=== PATIENT | female | born 1975 | race Caucasian/White ===

== ENCOUNTER 2022-06-27 10:15 | Emergency (ER) | payer BC ==
[2022-06-27] MEDS ORDERED: NA CHLORIDE 0.9% 1,000 ML ONE (11:24)
[2022-06-27 11:29] LABS: Absolute Lymphocytes (CBC) 2.9 K/uL (0.7-4.9); Hematocrit 45.8 % (36.0-45.0); Lymphocytes % 42.6 % (15.3-44.8); MCV 90.3 fL (80-100); MPV 9.5 fL (7.6-11.3); RBC Red Blood Cell Count 5.07 M/uL (3.86-4.86)
--- NOTE | 2022-06-27 11:29 | RAD REPORT ---
EXAM DESCRIPTION: CT - Head Brain Wo Cont - 06/27/2022 11:20 am CLINICAL HISTORY: Dizziness COMPARISON: None. TECHNIQUE: Computed axial tomography of the head was obtained. IV contrast was not requested. All CT scans are performed using dose optimization technique as appropriate and may include automated exposure control or mA/KV adjustment according to patient size. FINDINGS: An intracranial bleed is not seen . The ventricles are normal in caliber. No significant hypodense areas within the brain visualized No extra-axial fluid collection is noted. Empty sella turcica Fluid within the sinuses/ mastoids is not seen. IMPRESSION: No acute intracranial abnormality is seen. If patient's symptoms persist MRI of the bra in would be recommended.
--- NOTE | 2022-06-27 11:35 | RAD REPORT ---
EXAM DESCRIPTION: Misti Single View06/27/2022 11:29 am CLINICAL HISTORY: Chest pain COMPARISON: none FINDINGS: The lungs appear clear of acute infiltrate. The heart is normal size IMPRESSION: No acute abnormalities displayed
[2022-06-27 11:48] LABS: Magnesium 2.5 mg/dL (1.8-2.4); Potassium 4.5 mmol/L (3.5-5.1); Troponin High Sensitivity 4.8 pg/mL (<58.9)
[2022-06-27] MEDS ORDERED: KETOROLAC 30 MG/ML INJ ONE (12:13)
--- NOTE | 2022-06-27 12:47 | ER ---
Nurse's Notes [facility] Name: Karol Mayo Age: 47 yrs Sex: Female : 1975 Arrival Date: 06/27/2022 Time: 10:21 Bed 2 Private MD: Diagnosis: Dizziness and giddiness Presentation: 06/27 10:40 Chief complaint: Patient states: Headache and dizziness X 2-3 days. Went to options ld1 this morning - referred to ER. Pt reports left upper arm intermittent pain - blurred vision since yesterday evening at 5pm. Coronavirus screen: At this time, the client does not indicate any symptoms associated with coronavirus-19. Ebola Screen: No symptoms or risks identified at this time. Initial Sepsis Screen: Does the patient meet any 2 criteria? No. Patient's initial sepsis screen is negative. Does the patient have a suspected source of infection? No. Patient's initial sepsis screen is negative. Risk Assessment: Do you want to hurt yourself or someone else? Patient reports no desire to harm self or others. Onset of symptoms was June 27, 2022. 10:40 Method Of Arrival: Ambulatory ld1 10:40 Acuity: ANGELINE 3 ld1 Triage Assessment: 10:40 Headache History: Denies prior headaches. General: Appears in no apparent distress. ld1 comfortable, Behavior is calm, cooperative, appropriate for age. Pain: Denies pain. EENT: No signs and/or symptoms were reported regarding the EENT system. Reports blurred vision since 2 days. Neuro: Level of Consciousness is awake, alert, obeys commands, Oriented to person, place, time, situation, Reports blurred vision dizziness, headache. Cardiovascular: Capillary refill < 3 seconds Patient's skin is warm and dry. Respiratory: Airway is patent Respiratory effort is even, unlabored. GI: Abdomen is round non-distended. : No signs and/or symptoms were reported regarding the genitourinary system. Derm: No signs and/or symptoms reported regarding the dermatologic system. 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 - Social history:: Smoking status: Patient denies any tobacco usage or history of. Patient uses alcohol, occasionally. Screenin:46 Abuse screen: Denies threats or abuse. Nutritional screening: No deficits noted. vg1 Tuberculosis screening: No symptoms or risk factors identified. Fall Risk No fall in past 12 months (0 pts). No secondary diagnosis (0 pts). IV access (20 points). Ambulatory Aid- None/Bed Rest/Nurse Assist (0 pts). Gait- Normal/Bed Rest/Wheelchair (0 pts) Mental Status- Oriented to own ability (0 pts). Total Hanna Fall Scale indicates No Risk (0-24 pts). Assessment: 10:46 General: Appears in no apparent distress. uncomfortable, Behavior is calm, cooperative. vg1 Pain: Complains of pain in head. Neuro: Level of Consciousness is awake, alert, obeys commands, Oriented to person, place, time, situation, Ocean Clam Boat Captain are equal bilaterally Moves all extremities. Gait is steady, Speech is normal, Facial symmetry appears normal, Reports blurred vision dizziness, headache. Cardiovascular: Patient's skin is warm and dry. Respiratory: Airway is patent Respiratory effort is even, unlabored. GI: Abdomen is flat. : No signs and/or symptoms were reported regarding the genitourinary system. EENT: No signs and/or symptoms were reported regarding the EENT system. Derm: Skin is pink, warm \T\ dry. Musculoskeletal: Circulation, motion, and sensation intact. 11:45 Reassessment: Patient appears in no apparent distress at this time. No changes from vg1 previously documented assessment. Patient and/or family updated on plan of care and expected duration. Pain level reassessed. Patient is alert, oriented x 3, equal unlabored respirations, skin warm/dry/pink. Vital Signs: 10:40 BP 131 / 99; Pulse 86; Resp 18; Temp 97.6(O); Pulse Ox 100% on R/A; Weight 65.77 kg; ld1 Height 5 ft. 0 in. (152.40 cm); Pain 0/10; 10:46 BP 116 / 87; Pulse 80; Resp 15; Pulse Ox 100% on R/A; vg1 11:45 BP 105 / 71; Pulse 71; Resp 16; Pulse Ox 99% on R/A; vg1 13:25 BP 101 / 87; Pulse 73; Resp 14; Pulse Ox 100% on R/A; vg1 10:40 Body Mass Index 28.32 (65.77 kg, 152.40 cm) ld1 NIH Stroke Scale Scores: 10:40 NIHSS Score: 0 [facility] ED Course: 10:21 Patient arrived in ED. mr 10:40 Arm band placed on right wrist. ld1 10:42 Triage completed. ld1 10:45 Mindy Cyr FNP is PHCP. jh7 10:45 Alex Tamayo MD is Attending Physician. jh7 10:46 Michelle Melendez RN is Primary Nurse. vg1 10:46 Patient has correct armband on for positive identification. Placed in gown. Bed in low vg1 position. Call light in reach. Side rails up X 1. Adult w/ patient. Client placed on continuous cardiac and pulse oximetry monitoring. NIBP monitoring applied. 11:15 Initial lab(s) drawn, by la, sent to lab. Inserted saline lock: 20 gauge in right vg1 antecubital area, using aseptic technique. Blood collected. 11:21 CT Head Brain wo Cont In Process Unspecified. EDMS 11:31 XRAY Chest (1 view) In Process Unspecified. EDMS 13:25 No provider procedures requiring assistance completed. IV discontinued, intact, vg1 bleeding controlled, No redness/swelling at site. Pressure dressing applied. Administered Medications: 11:32 Drug: NS 0.9% 1000 ml Route: IV; Rate: 1 bolus; Site: right antecubital; vg1 13:24 Follow up: IV Status: Completed infusion; IV Intake: 1000ml vg1 12:15 Drug: Ketorolac 30 mg Route: IVP; Site: right antecubital; vg1 13:24 Follow up: Response: No adverse reaction; No change in condition vg1 13:24 Drug: Meclizine 25 mg Route: PO; vg1 13:24 Follow up: Response: Medication administered at discharge. vg1 Medication: 10:46 VIS not applicable for this client. vg1 Intake: 13:24 IV: 1000ml; Total: 1000ml. vg1 Outcome: 12:46 Discharge ordered by MD. mcfarland 13:25 Discharged to home via wheelchair, with family. vg1 13:25 Condition: good 13:25 Discharge instructions given to patient, family, Instructed on discharge instructions, follow up and referral plans. medication usage, Demonstrated understanding of instructions, follow-up care, medications, Prescriptions given X 1. 13:28 Patient left the ED. vg1 NIH Stroke Scale - NIH Stroke Score Date: 06/27/2022 Time: 10:40 Total Score = 0 1a. Level of Consciousness (LOC) - 0(Alert) 1b. Level of Consciousness (LOC) (Month \T\ Age) - 0(Both) 1c. LOC Commands (Open \T\ Closes Eyes/Cricket Coach) - 0(Both) 2. Best Gaze (Lateral Gaze Paresis) - 0(Normal) 3. Visual Field Loss - 0(No visual loss) 4. Facial Palsy - 0(Normal) 5a. Left Arm: Motor (10-second hold) - 0(No drift) 5b. Right Arm: Motor (10-second hold) - 0(No drift) 6a. Left Leg: Motor (5-second hold - always test supine) - 0(No drift) 6b. Right Leg: Motor (5-second hold - always test supine) - 0(No drift) 7. Limb Ataxia (finger/nose \T\ heel/andre - test with eyes open) - 0(Absent) 8. Sensory Loss (pinprick arms/legs/face) - 0(Normal) 9. Best Language: Aphasia (description/naming/reading) - 0(No aphasia) 10. Dysarthria (speech clarity - read or repeat words) - 0(Normal) 11. Extinction and Inattention (visual/tactile/auditory/spatial/personal) - 0(No abnormality) Initials: bruna Signatures: Dispatcher [employer] Caryn Muniz Victoria, RN RN vg1 Maliha Talley, RN RN ld1 Mindy Cyr, LABORER/KEY MAN LABORER/KEY MAN 7 Corrections: (The following items were deleted from the chart) 10:47 10:40 Chief complaint: Patient states: Headache and dizziness X 2-3 days. Went ld1 to options this morning - referred to ER. ld1 11:20 10:46 Neuro: Level of Consciousness is awake, alert, obeys commands, Oriented vg1 to person, place, time, situation, Ocean Clam Boat Captain are equal bilaterally Moves all extremities. Gait is steady, Speech is normal, Facial symmetry appears normal, vg1 11: 10:46 Inserted saline lock: 20 gauge in right antecubital area, using aseptic vg1 technique. Blood collected. vg1 11: 10:46 Initial lab(s) drawn, by me, sent to lab. vg1 vg1
--- NOTE | 2022-06-27 12:47 | EDPHYS ---
Physician Documentation [facility] Name: Karol Mayo Age: 47 yrs Sex: Female : 1975 Arrival Date: 06/27/2022 Time: 10:21 Bed 2 Private MD: ED Physician Alex Tamayo HPI: 06/27 10:40 This 47 yrs old Female presents to ER via Ambulatory with complaints of Headache, jh7 Dizziness. 10:40 The patient complains of pain to the forehead. The patient describes the headache as jh7 aching. Onset: The symptoms/episode began/occurred 3 day(s) ago. Associated signs and symptoms: Pertinent positives: dizziness, blurred vision, Pertinent negatives: altered mental status, fever, nausea, Photophobia weakness. Headache History: Denies prior headaches. 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 - Social history:: Smoking status: Patient denies any tobacco usage or history of. Patient uses alcohol, occasionally. ROS: 10:40 Constitutional: Negative for fever, chills, and weight loss, Eyes: Negative for injury, jh7 pain, redness, and discharge, ENT: Negative for injury, pain, and discharge, Neck: Negative for injury, pain, and swelling, Cardiovascular: Negative for chest pain, palpitations, and edema, Respiratory: Negative for shortness of breath, cough, wheezing, and pleuritic chest pain, Abdomen/GI: Negative for abdominal pain, nausea, vomiting, diarrhea, and constipation, Back: Negative for injury and pain, MS/Extremity: Negative for injury and deformity, Skin: Negative for injury, rash, and discoloration, Neuro: Negative for headache, weakness, numbness, tingling, and seizure. 10:40 Neuro: Positive for dizziness, headache, Negative for altered mental status, loss of consciousness, numbness, syncope, tingling, weakness. 10:40 All other systems are negative. Exam: 10:40 Constitutional: This is a well developed, well nourished patient who is awake, alert, jh7 and in no acute distress. Head/Face: Normocephalic, atraumatic. ENT: Nares patent. No nasal discharge, no septal abnormalities noted. Tympanic membranes are normal and external auditory canals are clear. Oropharynx with no redness, swelling, or masses, exudates, or evidence of obstruction, uvula midline. Mucous membranes moist. Neck: Trachea midline, no thyromegaly or masses palpated, and no cervical lymphadenopathy. Supple, full range of motion without nuchal rigidity, or vertebral point tenderness. No Meningismus. Cardiovascular: Regular rate and rhythm with a normal S1 and S2. No gallops, murmurs, or rubs. Normal PMI, no JVD. No pulse deficits. Respiratory: Lungs have equal breath sounds bilaterally, clear to auscultation and percussion. No rales, rhonchi or wheezes noted. No increased work of breathing, no retractions or nasal flaring. Abdomen/GI: Soft, non-tender, with normal bowel sounds. No distension or tympany. No guarding or rebound. No evidence of tenderness throughout. Back: No spinal tenderness. No costovertebral tenderness. Full range of motion. Skin: Warm, dry with normal turgor. Normal color with no rashes, no lesions, and no evidence of cellulitis. MS/ Extremity: Pulses equal, no cyanosis. Neurovascular intact. Full, normal range of motion. 10:40 Eyes: Periorbital structures: appear normal, Pupils: equal, round, and reactive to light and accomodation, Extraocular movements: intact throughout, Conjunctiva: normal, Corneas: are normal, Mild dizziness exacerbated by position changes and head movement. 10:40 Neuro: Orientation: is normal, to person, place, time \T\ situation. Mentation: is normal, Memory: is normal, Cranial nerves: grossly normal, Cerebellar function: is grossly normal, Motor: is normal, Sensation: is normal, Gait: is steady. 11:02 ECG was reviewed by the Attending Physician. [facility] Vital Signs: 10:40 BP 131 / 99; Pulse 86; Resp 18; Temp 97.6(O); Pulse Ox 100% on R/A; Weight 65.77 kg; ld1 Height 5 ft. 0 in. (152.40 cm); Pain 0/10; 10:46 BP 116 / 87; Pulse 80; Resp 15; Pulse Ox 100% on R/A; vg1 11:45 BP 105 / 71; Pulse 71; Resp 16; Pulse Ox 99% on R/A; vg1 13:25 BP 101 / 87; Pulse 73; Resp 14; Pulse Ox 100% on R/A; vg1 10:40 Body Mass Index 28.32 (65.77 kg, 152.40 cm) ld1 NIH Stroke Scale Scores: 10:40 NIHSS Score: 0 [facility] MDM: 10:45 Patient medically screened. [facility] 12:50 Differential diagnosis: cluster headache, cerebral vascular accident, migraine, otitis, [facility] subarachnoid bleed, tension headache. Data reviewed: vital signs, nurses notes, lab test result(s), EKG, radiologic studies, CT scan, plain films. Data interpreted: Pulse oximetry: is 99 %. Interpretation: normal. Counseling: I had a detailed discussion with the patient and/or guardian regarding: the historical points, exam findings, and any diagnostic results supporting the discharge/admit diagnosis, to return to the emergency department if symptoms worsen or persist or if there are any questions or concerns that arise at home. Response to treatment: the patient's symptoms have markedly improved after treatment. 06/27 10:58 Order name: Basic Metabolic Panel; Complete Time: 11: [facility] 06/27 10:58 Order name: CBC with Diff; Complete Time: 11: [facility] 06/27 10:58 Order name: Magnesium; Complete Time: 11: [facility] 06/27 10:58 Order name: Troponin HS; Complete Time: 11:57 [facility] 06/27 10:58 Order name: XRAY Chest (1 view); Complete Time: 11:57 [facility] 06/27 10:58 Order name: Flu; Complete Time: 11: [facility] 06/27 10:58 Order name: EKG; Complete Time: 10:59 [facility] 06/27 10:58 Order name: Cardiac monitoring; Complete Time: 11:21 [facility] 06/27 10:58 Order name: EKG - Nurse/Tech; Complete Time: 11:21 [facility] 06/27 10:58 Order name: IV Saline Lock; Complete Time: 11:21 [facility] 06/27 10:58 Order name: CT Head Brain wo Cont; Complete Time: 11:57 [facility] 06/27 10:58 Order name: Labs collected and sent; Complete Time: 11:21 [facility] 06/27 10:58 Order name: O2 Per Protocol; Complete Time: 11:21 [facility] 06/27 10:58 Order name: O2 Sat Monitoring; Complete Time: 11: [facility] EC:02 Rate is 70 beats/min. Rhythm is regular. QRS [place] is Normal. HI interval is normal at [facility] 164 msec. QRS interval is normal at 80 msec. QT interval is normal at 380 msec. No Q waves. T waves are Normal. No ST changes noted. Clinical impression: Normal ECG. Administered Medications: 11:32 Drug: NS 0.9% 1000 ml Route: IV; Rate: 1 bolus; Site: right antecubital; vg1 13:24 Follow up: IV Status: Completed infusion; IV Intake: 1000ml vg1 12:15 Drug: Ketorolac 30 mg Route: IVP; Site: right antecubital; vg1 13:24 Follow up: Response: No adverse reaction; No change in condition vg1 13:24 Drug: Meclizine 25 mg Route: PO; vg1 13:24 Follow up: Response: Medication administered at discharge. vg1 Disposition: 17:41 Co-signature as Attending Physician, Alex Tamayo MD. rn Disposition Summary: 06/27/22 12:46 Discharge Ordered Location: Home [facility] Problem: new [facility] Symptoms: have improved [facility] Condition: Stable [facility] Diagnosis - Dizziness and giddiness [facility] Followup: [facility] - With: Private Physician - When: 2 - 3 days - Reason: Recheck today's complaints Discharge Instructions: - Discharge Summary Sheet [facility] - Dizziness [facility] - Vertigo [facility] Forms: - Medication Reconciliation Form [facility] - Work release form vg1 - Thank You Letter [facility] Prescriptions: - Meclizine 25 mg Oral Tablet - take 1 tablet by ORAL route every 8 hours As needed; 30 tablet; Refills: 0, jh7 Product Selection Permitted NIH Stroke Scale - NIH Stroke Score Date: 06/27/2022 Time: 10:40 Total Score = 0 1a. Level of Consciousness (LOC) - 0(Alert) 1b. Level of Consciousness (LOC) (Month \T\ Age) - 0(Both) 1c. LOC Commands (Open \T\ Closes Eyes/Field Support Specialist) - 0(Both) 2. Best Gaze (Lateral Gaze Paresis) - 0(Normal) 3. Visual Field Loss - 0(No visual loss) 4. Facial Palsy - 0(Normal) 5a. Left Arm: Motor (10-second hold) - 0(No drift) 5b. Right Arm: Motor (10-second hold) - 0(No drift) 6a. Left Leg: Motor (5-second hold - always test supine) - 0(No drift) 6b. Right Leg: Motor (5-second hold - always test supine) - 0(No drift) 7. Limb Ataxia (finger/nose \T\ heel/andre - test with eyes open) - 0(Absent) 8. Sensory Loss (pinprick arms/legs/face) - 0(Normal) 9. Best Language: Aphasia (description/naming/reading) - 0(No aphasia) 10. Dysarthria (speech clarity - read or repeat words) - 0(Normal) 11. Extinction and Inattention (visual/tactile/auditory/spatial/personal) - 0(No abnormality) Initials: jh Signatures: Dispatcher [employer] EDAlex Wilson MD MD rn Garcia, Victoria, RN RN 1 Maliha Talley RN RN ld1 Mindy Cyr, SOIL TECHNICIAN SOIL TECHNICIAN [facility]
[2022-06-27] MEDS ORDERED: MECLIZINE HCL 12.5 MG TAB ONE (12:50)
[2022-06-27 14:00] VITALS: TEMP 97.6
[2022-06-27 14:05] VITALS: BP 101/87; O2SAT 100
--- NOTE | 2022-06-28 13:57 | EKG ---
Test Date: 2022-06-27 Test Time: 11:02:01 Undraped Artist Model: MEASUREMENT RESULTS: Intervals: Rate: 70 PA: 164 QRSD: 80 QT: 380 QTc: 410 [place]: P: 37 PA: 164 QRS: 40 T: 34 INTERPRETIVE STATEMENTS: Normal sinus rhythm Low voltage QRS Borderline ECG No previous ECG available for comparison Electronically Signed On 06-28-22 13:56:00 MONORAIL CRANE OPERATOR by [place]
== END 2022-06-27 13:28 | disposition home or self-care (01) ==
LOC: ER 10:15
DX: R42 Dizziness and giddiness (principal); F90.9 Attention-deficit hyperactivity disorder, unspecified type
CPT/HCPCS: 96361; 93005; 85025; 80048; 36415; 83735; 84484; 87804 ×2; 70450; 71045; 96374; 99284; J8597; J7030